=== PATIENT | male | born 1960 | race Caucasian/White ===

== ENCOUNTER 2018-02-26 13:23 | Emergency (ER) | payer OTHER ==
--- NOTE | 2018-02-26 14:01 | EDPHY ---
H & P Stated Complaint: right 3rd digit redness and swelling started 3 days ago Time Seen by Provider: 02/26/18 13:38 HPI/ROS: 57-year-old male presents complaining of swelling of his right 3rd finger round the nail bed for several days. He states last night it drained a little bit of pus. He states that this swelling comes and goes quite often however this is the 1st time that it has drained pus and been large and red. No fevers or chills Review of systems As per HPI General no fever no chills no weakness HEENT no eye pain no eye discharge. No eye redness, no sore throat Respiratory no cough, no shortness of breath Cardiac no chest pain, no peripheral edema GI no abdominal pain, no diarrhea, no constipation, no nausea, no vomiting no flank pain, no hematuria, no dysuria Musculoskeletal no myalgias, no joint pain Heme no easy bruising, no easy bleeding Endo no polyuria, no polydipsia Skin no rashes, no pruritus Neuro no syncope, no dizziness, no headaches Psych is no suicidal ideation, no homicidal ideation Source: Patient Exam Limitations: No limitations - Personal History Current Tetanus Diphtheria and Acellular Pertussis (TDAP): Unsure - Medical/Surgical History Hx Asthma: No Hx Chronic Respiratory Disease: No Hx Diabetes: No Hx Cardiac Disease: No Hx Renal Disease: No Hx Cirrhosis: No Hx Alcoholism: No Hx HIV/AIDS: No Hx Splenectomy or Spleen Trauma: No Other PMH: wrist surg - Family History Significant Family History: No pertinent family hx - Social History Smoking Status: Never smoked Alcohol Use: Occasionally Drug Use: None - Physical Exam Exam: 57-year-old male Alert and oriented in no acute distress nontoxic appearance, afebrile Atraumatic normocephalic Neck no JVD Lungs clear to auscultation, no respiratory distress Heart regular rate and rhythm Extremities no cyanosis clubbing edema Right hand-full range of motion digits, wrist Good capillary refill Middle Finger with swelling and erythema mildly fluctuant at nail bed edge Constitutional: Initial Vital Signs Temperature (C) 36.8 C 02/26/18 13:38 Heart Rate 58 L 02/26/18 13:38 Respiratory Rate 18 02/26/18 13:38 Blood Pressure 163/94 H 02/26/18 13:38 O2 Sat (%) 95 02/26/18 13:38 O2 Delivery Mode Room Air Allergies/Adverse Reactions: No Known Allergies Allergy (Unverified 02/26/18 13:38) Home Medications: Medication Instructions Recorded Clindamycin HCl [Clindamycin] 300 mg PO TID 7 Days #21 cap 02/26/18 Medical Decision Making Procedures: Abscess-procedure note The patient gave verbal consent for drainage of a paronychia Risk of bleeding and pain were explained to the patient. A digital block with lidocaine 1% and bupivacaine 0.25% was performed on the right middle digit An incision was made perpendicular to the area of fluctuance at the nail base. . A scalpel was used to incise the abscess. {1} mL of purulent drainage was expressed. Wound was cleansed and dressed The patient tolerated procedure well. ED Course/Re-evaluation: Patient seen and evaluated for swelling at nail bed on right middle finger. Impression Paronychia Plan Incision and drainage Wound care, dressing Clindamycin Follow-up with primary care physician Return to emergency as needed Differential Diagnosis: Differential diagnosis considered but not limited to: Distal finger tip scar tissue, paronychia, felon Departure - Departure Disposition: Home, Routine, Self-Care Clinical Impression: Paronychia of left middle finger Condition: Good Instructions: Paronychia (ED) Additional Instructions: Keep the area clean and dry, it will continue to ooze both blood and a small amount of pus. Return for wound check this thursday between 3pm and 11pm, unless it is markedly worse then go to the ED anytime. Clindamycin 3 times a day for 7 days. Referrals: SHALOM YATES [Primary Care Provider] - As per Instructions Prescriptions: Clindamycin HCl [Clindamycin] 300 mg PO TID 7 Days #21 cap
[2018-02-26 14:40] VITALS: BP 159/92
== END 2018-02-26 14:36 | disposition home or self-care (01) ==
LOC: CED 13:23
PROC: 0H9FXZZ Drainage of Right Hand Skin, External Approach (ICD-10-PCS; principal; 2018-02-26)
DX: L03.011 Cellulitis of right finger (principal)